=== PATIENT | male | born 1990 | race Caucasian/White ===

== ENCOUNTER 2024-01-21 02:59 | Emergency (ER) | payer SELFPAY ==
[~2024-01-21] VITALS: Ht 185.4 cm; Wt 90.0 kg
[2024-01-21 03:08] VITALS: TEMP 97.4; O2SAT 98
[2024-01-21] MEDS: LORAZEPAM 2MG/ML INJ IM ONE ×2 (03:36→04:05)
[2024-01-21] MEDS: DIPHENHYDRAMINE 50MG/ML VIAL IM ONE (03:36)
[2024-01-21] MEDS: HALOPERIDOL LACTATE 5MG/ML VIAL IM ONE (03:37)
[2024-01-21 04:08] VITALS: BP 141/72; PULSE 63; RESP 19; O2SAT 100
[2024-01-21] MEDS: SODIUM CHLORIDE 0.9% 1,000 ML IV ONE (04:18)
[2024-01-21 04:37] LABS: BASOPHILS % 0.8 % (0.0-2.0); EOSINOPHILS % 2.6 % (0.0-5.0); HEMATOCRIT. 44.2 % (42.0-52.0); HEMOGLOBIN. 14.8 g/dL (14.0-18.0); LYMPHOCYTES % 24.5 % (20.0-50.0); MEAN CORPUSCULAR HEMOGLOBIN 30.1 pg (28.0-32.0); MEAN CORPUSCULAR HGB CONC 33.6 g/dL (31.0-37.0); MEAN CORPUSCULAR VOLUME 89.5 fL (80.0-94.0); MEAN PLATELET VOLUME 9.7 fl (7.4-10.4); MONOCYTES % 8.6 % (2.0-8.0); NEUTROPHILS % 63.5 % (40.0-76.0); PLATELET 226 x1000/uL (130-400); RED BLOOD CELL COUNT 4.94 mill/uL (4.7-6.1); WHITE BLOOD COUNT 9.1 x1000/uL (4.5-11.0)
[2024-01-21 04:41] LABS: CHLORIDE 111 mEq/L (98-107); POTASSIUM 3.6 mEq/L (3.5-5.1); SODIUM 143 mEq/L (136-145)
[2024-01-21 04:42] LABS: CARBON DIOXIDE 25 mEq/L (21-32)
[2024-01-21 04:43] LABS: CALCIUM 9.3 mg/dL (8.7-10.4)
[2024-01-21 04:48] LABS: CREATININE 0.7 mg/dL (0.6-1.3); ETHANOL BLOOD 121 mg/dL (<10); GLUCOSE 87 mg/dL (70-105)
[2024-01-21 04:50] LABS: ACETAMINOPHEN < 2 ug/mL (10-30)
[2024-01-21 04:55] LABS: UREA NITROGEN BLOOD < 5 mg/dL (9-23)
== END 2024-01-21 07:37 | disposition home or self-care (01) ==
LOC: ER 02:59
DX: T65.91XA Toxic effect of unspecified substance, accidental (unintentional), initial encounter (principal); F11.10 Opioid abuse, uncomplicated; Y92.9 Unspecified place or not applicable
CPT/HCPCS: 80048; 80307; 80329; 80320; 85025; 36415; 96360; 96361; 96372; 99284; J1200; J1630; J2060; J7030; Z7610; G0480